=== PATIENT | female | born 1975 | race Caucasian/White ===

== ENCOUNTER 2017-07-29 21:46 | Emergency (ER) | payer BC, OTHER ==
[~2017-07-29] VITALS: Ht 175.3 cm; Wt 106.6 kg
[~2017-07-29 21:46] MED LIST: BCPILLS PO; DIPH25TA24 PO; LEVO25TA5 PO; MELA1CAP9 PO; SUMA50TA15 PO
[2017-07-29 21:55] VITALS: TEMP 37; Ht 175.3 cm; Wt 106.6 kg
[2017-07-29 22:43] LABS: BASO % 0.4 %; BASO ABS # 0.03 K/uL (0-0.2); COMPLETE YES; EOS % 2.6 %; HEMATOCRIT 36.7 % (37-47); IG% 0.5 %; LYMPH % 28.9 %; LYMPH ABS # 2.25 K/uL (1.2-3.4); MEAN CELL VOLUME 88.9 fL (80-100); MEAN CORPUSCULAR HEMOGLOBIN 30.3 pg (25-34); MEAN CORPUSCULAR HGB CONC 34.1 g/dl (32-36); MONO % 8.3 %; NEUT % 59.3 %; PLATELET COUNT 226 K/uL (130-400); RED BLOOD COUNT 4.13 M/uL (4.2-5.4); WHITE BLOOD COUNT 7.79 K/uL (4.8-10.8)
[2017-07-29 22:51] LABS: PROTHROMBIN TIME (PATIENT) 10.5 SECONDS (9.0-12.0)
[2017-07-29 22:59] LABS: BUN/CREATININE RATIO 14.8 (10-20); CALCIUM 8.6 mg/dl (8.5-10.1); CREATININE 0.86 mg/dl (0.60-1.20); POTASSIUM 3.6 mmol/L (3.5-5.1)
[2017-07-29 23:02] LABS: ALB/GLOB RATIO 1.2 (0.9-2); C-REACTIVE PROTEIN 0.65 mg/dl (0-0.29)
[2017-07-30] MEDS ORDERED: PRED20TA2 PO (00:07)
[2017-07-30] MEDS ORDERED: CLIN300C2 PO (00:07)
--- NOTE | 2017-07-30 00:09 | EMERGENCY ROOM VISIT NOTE ---
History First contact with patient: 21:59 Chief Complaint: RASH Stated Complaint: RASH ON FACE,BREATHING IS "THICK" BUT NOT DIFFICUL History of Present Illness The patient is a 42 year old female who presents to the Emergency Room with complaints of a rash on her face. The patient reports that she developed a rash on her cheeks which began 4 days ago. She states that the rash is red and slightly painful. She describes the pain as a burning sensation and rates the discomfort a 1/10. She first noticed the rash after she had been out in the sun for a few hours. She states that the rash worsened throughout the past few days. She applied some Cetaphil without relief. She also took Benadryl without any relief. The patient states that the rash feels hot. She denies any other rashes or skin lesions. She denies any history of similar symptoms. The patient reports a history of hypothyroidism and takes Synthroid for this. She does report that her father's side of the family has extensive autoimmune disease history. She has been tested for autoimmune disease in the past which has been negative. She denies any new makeup, lotions or face washes. She denies any fevers or respiratory symptoms. Review of Systems A complete 10 point review of systems was reviewed with the patient with pertinent positives and negatives as per history of present illness. All else were negative. Past Medical/Surgical History Medical Problems: (1) Asthma (2) Bronchitis (3) Pneumonia Surgical Problems: (1) dermoid cyst removed (2) Hx of tubal ligation (3) S/P cone biopsy of cervix Family History Diabetes mellitus FHx: cancer Gallbladder disease Hypertension Seizures Social History Smoking Status: Never Smoker Alcohol Use: occasionally Marital Status: Housing Status: lives with family Occupation Status: employed Current/Historical Medications Scheduled Control Pills ( Control Pills), 1 TAB PO DAILY Clindamycin Hcl (Cleocin), 300 MG PO TID Levothyroxine Sodium (Levothyroxine Sodium), 25 MCG PO DAILY Prednisone (Prednisone Tab), 2 TAB PO DAILY Scheduled PRN Diphenhydramine Hcl (Benadryl), 50 MG PO UD PRN for Allergy Symptoms Melatonin (Melatonin), 10 MG PO HS PRN for Sleep Sumatriptan Succinate (Imitrex), 50 MG PO UD PRN for Migraine Physical Exam Vital Signs Date Time Temp Pulse Resp B/P (MAP) Pulse Ox O2 Delivery O2 Flow Rate FiO2 07/30/17 00:20 85 20 118/75 98 07/29/17 23:28 82 16 123/86 100 Room Air 07/29/17 21:55 37.0 82 20 129/74 100 Room Air Physical Exam VITALS: Vitals are noted on the nurse's note and reviewed by myself. Vital signs stable. GENERAL: This is a 42-year-old female, in no acute distress, nondiaphoretic, well-developed well-nourished. SKIN: There is an erythematous, slightly raised rash to bilateral cheeks with minimal redness to the mid forehead and chin. There are a few small pustules on bilateral cheeks. EARS: External auditory canals clear, tympanic membranes pearly fields without erythema or effusion bilaterally. EYES: Pupils equal round and reactive to light and accommodation. MOUTH: Mucous membranes moist. Tonsils are not enlarged. Pharynx without erythema or exudate. NECK: Supple without nuchal rigidity. No lymphadenopathy. HEART: Regular rate and rhythm without murmurs gallops or rubs. LUNGS: Clear to auscultation bilaterally without wheezes, rales or rhonchi. NEURO: Patient was alert and oriented to person place and time. Medical Decision & Procedures Laboratory Results 07/29/17 22:15 Red Blood Count 4.13, Mean Corpuscular Volume 88.9, Mean Corpuscular Hemoglobin 30.3, Mean Corpuscular Hemoglobin Concent 34.1, Neutrophils (%) (Auto) 59.3, Lymphocytes (%) (Auto) 28.9, Monocytes (%) (Auto) 8.3, Eosinophils (%) (Auto) 2.6, Basophils (%) (Auto) 0.4, Neutrophils # (Auto) 4.62, Lymphocytes # (Auto) 2.25, Monocytes # (Auto) 0.65, Eosinophils # (Auto) 0.20, Basophils # (Auto) 0.03 07/29/17 22:15 Test 07/29/17 22:15 White Blood Count 7.79 K/uL (4.8-10.8) Red Blood Count 4.13 M/uL (4.2-5.4) Hemoglobin 12.5 g/dL (12.0-16.0) Hematocrit 36.7 % (37-47) Mean Corpuscular Volume 88.9 fL (80-100) Mean Corpuscular Hemoglobin 30.3 pg (25-34) Mean Corpuscular Hemoglobin Concent 34.1 g/dl (32-36) Platelet Count 226 K/uL (130-400) Neutrophils (%) (Auto) 59.3 % Lymphocytes (%) (Auto) 28.9 % Monocytes (%) (Auto) 8.3 % Eosinophils (%) (Auto) 2.6 % Basophils (%) (Auto) 0.4 % Neutrophils # (Auto) 4.62 K/uL (1.4-6.5) Lymphocytes # (Auto) 2.25 K/uL (1.2-3.4) Monocytes # (Auto) 0.65 K/uL (0.11-0.59) Eosinophils # (Auto) 0.20 K/uL (0-0.5) Basophils # (Auto) 0.03 K/uL (0-0.2) Immature Granulocyte % (Auto) 0.5 % Immature Granulocyte # (Auto) 0.04 K/uL (0.00-0.02) Erythrocyte Sedimentation Rate 8 mm/hr (0-21) Prothrombin Time 10.5 SECONDS (9.0-12.0) Prothromb Time International Ratio 1.0 (0.9-1.1) Activated Partial Thromboplast Time 26.4 SECONDS (21.0-31.0) Partial Thromboplastin Ratio 1.0 Anion Gap 7.0 mmol/L (3-11) Est Creatinine Clear Calc Drug Dose 112.0 ml/min Estimated GFR () 97.3 Estimated GFR (Non- 83.9 BUN/Creatinine Ratio 14.8 (10-20) Calcium Level 8.6 mg/dl (8.5-10.1) Total Bilirubin 0.5 mg/dl (0.2-1) Aspartate Amino Transf (AST/SGOT) 18 U/L (15-37) Alanine Aminotransferase (ALT/SGPT) 33 U/L (12-78) Alkaline Phosphatase 53 U/L (45-117) C-Reactive Protein 0.65 mg/dl (0-0.29) Total Protein 7.1 gm/dl (6.4-8.2) Albumin 3.8 gm/dl (3.4-5.0) Globulin 3.3 gm/dl (2.5-4.0) Albumin/Globulin Ratio 1.2 (0.9-2) Medications Administered Medications (Trade) Dose Ordered Sig/Vinicio Route Start Time Stop Time Status Last Admin Dose Admin Clindamycin HCl (Cleocin Cap) 300 mg NOW ONCE PO 07/30/17 00:15 07/30/17 00:16 DC 07/30/17 00:20 300 MG Medical Decision Differential diagnosis includes SLE, autoimmune process, folliculitis, UV dermatitis, contact dermatitis, among others. The patient was evaluated as above. She has an erythematous, pustular rash to the cheeks which is concerning for malar rash/ SLE. The pustules may represent external infection and patient will be placed on clindamycin and given a prescription for a steroid to take in case this does not improve. She will follow-up with her PCP this week. She verbalized understanding of my assessment and treatment plan and was discharged home in good condition. The patient's case was reviewed with Dr. Clements, ED attending physician, who agreed with my assessment and treatment plan. Medication Reconcilliation Current Medication List: was personally reviewed by [facility] Blood Pressure Screening Patient's blood pressure: Normal blood pressure Impression Primary Impression: Facial rash Departure Information Dispostion Home / Self-Care Condition GOOD Prescriptions Prednisone (Prednisone Tab) 20 Mg Tab 2 TAB PO DAILY for 5 Days, #10 TAB Prov: Yolanda Mac PA-C 07/30/17 Clindamycin Hcl (CLEOCIN) 300 Mg Cap 300 MG PO TID for 7 Days, #21 CAP Prov: Yolanda Mac PA-C 07/30/17 Referrals Serge Chavis MD (PCP) Patient Instructions My [facility] Additional Instructions You were prescribed clindamycin to be taken as prescribed. This is an antibiotic. All antibiotics have the potential to cause diarrhea. Stop this medication and contact a medical provider if you were to develop any significant adverse side effects including: wheezing, shortness of breath, passing out, vomiting, or a diffuse rash. Always take antibiotics as directed and COMPLETE the ENTIRE course regardless of the improvement of your symptoms. Begin the prednisone in 24-48 hours if you have persistent or worsening symptoms. Follow-up with Dr. Chavis this week for further evaluation/testing. Return here for any worsening rash, facial swelling, difficulty breathing or any other new/concerning symptoms.
[2017-07-30] MEDS ORDERED: CLINDAMYCIN HCL 150 MG CAP PO ONE (00:15)
[2017-07-30 00:20] VITALS: BP 118/75; PULSE 85; O2SAT 98
== END 2017-07-30 00:21 | disposition home or self-care (01) ==
LOC: C.EDB 21:47 → C.EDC 07-30 00:21
DX: E03.9 Hypothyroidism, unspecified (principal); J45.909 Unspecified asthma, uncomplicated; Z79.3 Long term (current) use of hormonal contraceptives; Z83.3 Family history of diabetes mellitus; Z82.49 Family history of ischemic heart disease and other diseases of the circulatory system; Z82.0 Family history of epilepsy and other diseases of the nervous system; Z83.79 Family history of other diseases of the digestive system